=== PATIENT | female | born 2000 | race Caucasian/White ===

== ENCOUNTER 2023-06-22 10:00 | Day surgery (SDC) | payer OTHER ==
[~2023-06-22] VITALS: Ht 162.6 cm; Wt 78.5 kg
[~2023-06-22 10:00] MED LIST: ETON1VAG3; NITR2OI; ONDA-83 PO; PANT20TA6 PO; SENN-186 PO
[2023-06-22] MEDS ORDERED: fentaNYL 100 MCG/2 ML INJECTION As Ordered ONE (11:33)
[2023-06-22] MEDS ORDERED: propofoL 200 MG/20 ML VIAL As Ordered ONE (11:38)
[2023-06-22] MEDS ORDERED: LIDOCAINE 2% 100MG/5ML SDV (FOR ANES.) As Ordered ONE (11:38)
[2023-06-22 12:10] VITALS: TEMP 99
[2023-06-22 12:35] VITALS: BP 139/71; O2SAT 100
== END 2023-06-22 12:36 | disposition home or self-care (01) ==
LOC: M OPP 10:00
PROVIDERS: ATTEND Internal Medicine Gastroenterology
DX: K58.1 Irritable bowel syndrome with constipation (principal); K64.8 Other hemorrhoids; K21.9 Gastro-esophageal reflux disease without esophagitis; R12 Heartburn; R11.0 Nausea; Z79.3 Long term (current) use of hormonal contraceptives; Z79.02 Long term (current) use of antithrombotics/antiplatelets; Z79.899 Other long term (current) drug therapy
CPT/HCPCS: 43235; 45378; J3010